=== PATIENT | female | born 1945 | race Caucasian/White ===

== ENCOUNTER 2016-05-29 23:36 | Inpatient (IN) | payer MEDICARE ==
[~2016-05-29] VITALS: Ht 165.1 cm; Wt 57.8 kg
[2016-05-29 23:40] VITALS: BP 194/70; PULSE 83; RESP 17; O2SAT 100
--- NOTE | 2016-05-29 23:46 | ED.REPORT ---
HPI-Chest Pain 40 and Over Date of Service May 29, 2016 ED Provider: Yesika Gilman MD This is a 70 year old female with a history of HTN and hyperlipidemia presenting to the ED complaining of substernal chest pain that began 2 days ago. Described as burning and squeezing at times with positional character, exacerbated by lying on left side, relieved by lying on back. Denies radiation of pain. The pain seemed to worsen tonight and is associated with some SOB. Denies cough, fever, chills, abdominal pain, diaphoresis, or LE swelling. Pt had 650 mg ASA 3 hours ago. Nursing Notes Stated Complaint: CHEST PAIN Chief Complaint: Chest Pain Nursing Notes Reviewed: Yes Allergies: Coded Allergies: erythromycin base (Verified Adverse Reaction, Unknown, Abdominal Pain, ) General Time Seen by MD: 23:44 Chief Complaint Chest pain Hx Obtained From: Patient Arrived By: Walk-in Sudden in Onset?: Yes Onset Occurred: 2 days ago Symptom Duration: Since onset Severity: Current: Mild Pertinent Negative: Pt denies other symptoms Recent Healthcare: No recent doctor visit, No recent hospitalization Similar Sx Previous: No Past Medical History Past Medical History Reports: Hyperlipidemia, Hypertension Past Surgical History Denies Ambulatory Status Independent Review of Systems Constitutional: Denies: Chills, Fever Respiratory: Reports: Shortness of breath, Denies: Non-productive cough Cardiovascular: Reports: Chest pain, Denies: Syncope GI: Denies: Abdominal pain, Constipation, Diarrhea, Nausea, Vomiting Neurologic: Denies: Headache Complete sys rev & neg: except as marked. Physical Exam Initial Vital Signs Vital Signs (First) Date Time Temp Pulse Resp B/P Pulse Ox O2 Delivery O2 Flow Rate FiO2 05/29/16 23:40 36.7 83 17 194/70 100 Room Air Initial VS: Reviewed Head / Eyes: Atraumatic, Normocephalic, PERRL ENT: Mucous membranes moist, Conjunctiva normal, No scleral icterus Neck: Supple, Non-tender, Full range of motion Extremities: Vascular intact, Neuro intact, No swelling, No tenderness Skin: Warm, Dry, No cyanosis Neurologic: Alert, Oriented, Nonfocal Psychiatric: Mood/affect normal, Behavior normal, Normal thought content General/Constitutional: Awake, Alert Respiratory / Chest: Breath sounds NL, Breath sounds = bilat, No respiratory distress, No rales, No rhonchi, No wheezing, No stridor, No chest tenderness Cardiovascular: Heart rate NL, Regular rhythm, Heart sounds NL, No murmurs, Peripheral circulation NL, Pulses = bilaterally, No gross BP differential Abdomen: Soft, Non-tender, McBurney's non-tender, No guarding, No rebound, BS normoactive, No distention, No hernia, No palpable mass Interpretation & Diagnostics Lab Results Interpretation Result Diagram: 05/30/16 0002 05/30/16 0002 Test 05/30/16 00:02 White Blood Count 5.4th/mm3 (3.8-10.1) Red Blood Count 4.27mil/mm3 (3.90-5.20) Hemoglobin 12.5g/dL (12.0-15.6) Hematocrit 38.0% (35.0-46.0) Mean Corpuscular Volume 89.0fL (81-100) Mean Corpuscular Hemoglobin 29.3pg (27.0-35.0) Mean Corpuscular Hemoglobin Concent 32.9% (32.0-37.0) Red Cell Distribution Width 13.1% (12.3-15.4) Platelet Count 286bil/L (150-400) Neutrophils (%) (Auto) 49.9% (40-74) Lymphocytes (%) (Auto) 35.7% (14-46) Monocytes (%) (Auto) 11.8% (4-12) Eosinophils (%) (Auto) 1.7% (0-5) Basophils (%) (Auto) 0.7% (0-3) Sodium Level 137mEq/L (134-144) Potassium Level 4.3mEq/L (3.5-5.2) Chloride Level 100mEq/L (97-108) Carbon Dioxide Level 24mmol/L (18-29) Blood Urea Nitrogen 13mg/dL (8-27) Creatinine 0.74mg/dL (0.57-1.00) Estimat Glomerular Filtration Rate 111mL/min (>59) Glucose Level 94mg/dL (60-99) Calcium Level 9.5mg/dL (8.5-10.1) Magnesium Level 2.5mg/dL (1.6-2.6) Total Bilirubin 0.2mg/dL (0.0-1.2) Aspartate Amino Transf (AST/SGOT) 19U/L (0-50) Alanine Aminotransferase (ALT/SGPT) 12U/L (0-32) Alkaline Phosphatase 111U/L (25-165) Troponin T 0.010ug/L (0.0-0.011) Pro-B-Type Natriuretic Peptide 179.1pg/mL (0-301) Total Protein 8.4g/dL (6.4-8.4) Albumin 4.5g/dL (3.4-5.0) Hold Urban Top Tube Received (Received) ECG Interpretation ECG Interpretation: NSR at a rate of [address] elevation t-wave inversion in AVR and v1 RBBB Time: 23:51 Interpreted by: ED physician X-Ray Chest Interpretation Interpretation / Wet Read by: Wet read ED physician NL X-Ray Chest Findings: No acute disease Re-Eval/Medical Decision Med Decision/Clinical Course 70-year-old female with past medical history of hypertension and hyperlipidemia here with chest pain associated with shortness of breath and diaphoresis. Differential diagnosis includes but is not limited to ACS versus pleural effusion versus pneumonia versus anxiety. Patient's chest x-ray is normal. Initial EKG and troponin are unremarkable. Given her multiple risk factors, I have admitted her to the hospital for formal ACS rule out. She is aware and amenable to discharge. I did not give her aspirin in the emergency department because she took aspirin prior to arrival. Time of Eval: 01:23 Re-Evaluation/Progress Note: Discussed need for admission, all questions addressed. Consultation : Referral / Consult Name: Misti Holt DO Consulted With: Hospitalist Call Returned at: 01:22 Patent Legal Assistant: Accepts admit Counseled Regarding: Diagnosis, Lab results, Need for follow-up, Need for admission Discharge & Departure Primary Impression: Chest pain Chest pain type: unspecified Qualified Code: R07.9 - Chest pain, unspecified Disposition: ADMITTED TO HOSPITAL Discharge Condition All VS Reviewed: Yes Condition: Stable Scribe Attestation Portions of this note were transcribed by Jameel Larson. IDr. Gilman personally performed the history, physical exam and medical decision-making; I reviewed and confirmed the accuracy of the information in the transcribed note. Signed by: estiven Mckeon. 05/29/2016, 02:00. Yesika Gilman MD May 29, 2016 23:46 JAMEEL LARSON May 29, 2016 23:48
[2016-05-30] VITALS (11 sets, daily range): BP systolic 103–155; BP diastolic 56–84; PULSE 66–81; RESP 18–20; O2SAT 96–100
[2016-05-30] MEDS ORDERED: cloNIDine 0.1 mg Tablet PO ONE
[2016-05-30 00:18] LABS: BASOPHILS % (AUTO) 0.7 % (0-3); EOSINOPHILS % (AUTO) 1.7 % (0-5); MONOCYTES % (AUTO) 11.8 % (4-12); Mean Corpuscular Hemoglobin 29.3 pg (27.0-35.0); NEUTROPHILS % (AUTO) 49.9 % (40-74); Platelet Count 286 bil/L (150-400)
[2016-05-30 01:08] LABS: Magnesium 2.5 mg/dL (1.6-2.6); TROPONIN T 0.01 ug/L (0.0-0.011)
[2016-05-30] MEDS ORDERED: Senna-Docusate 8.6-50 mg Tablet PO PRN (01:55)
[2016-05-30] MEDS ORDERED: Alum-Mag Hydrox-Simeth 30 mL Suspension PO PRN (01:55)
[2016-05-30] MEDS ORDERED: Ondansetron 2 mg/mL 2 mL Inj IVPUSH PRN (01:55)
[2016-05-30] MEDS ORDERED: Polyethylene Glycol (PEG) 17 Gm Powder PO PRN (01:55)
[2016-05-30 02:30] LABS: APPEARANCE,URINE CLEAR (CLEAR,HAZY); COLOR,URINE STRAW (YELLOW); OCCULT BLOOD,URINE NEGATIVE (NEGATIVE); PH,URINE 7.5 (5.0-8.0); UROBILINOGEN,URINE NORMAL (NORMAL)
[2016-05-30] MEDS ORDERED: cloNIDine 0.1 mg Tablet PO PRN (02:35)
--- NOTE | 2016-05-30 02:36 | PCM.HPMED ---
Subjective Date of Service May 30, 2016 Primary Provider: Admitting Physician: Misti Holt DO Primary Care Physician: Yunior Menchaca DO Attending Physician: Misti Holt DO Admit Status: From the Emergency Department Chief Complaint: Chest pain History of Present Illness: Patient is a 70 year old female with a history of hyperlipidemia and hypertension. She presented to [facility] on 05/29/16 with chest pain. She first noted the chest pain two nights ago. It occurred while she was in bed and she described that as a burning pain with pressure. She attributed this to acid reflux at that time. Yesterday she went [place] walk [place] the [place] and reported no chest pain, shortness of breath or other discomfort. Last night, the pain returned while she was in bed. She states that she was unable to lay comfortably on either side because of the pain. She did not have any issues during the day again today, but this evening she had her symptoms again and this time felt they were worse. At first she tried taking two aspirin and sitting upright. This did not help and she then became short of breath with mild nausea. The pain was radiating into her left shoulder and neck. She had pleurisy about 7 years ago and reports that this pain is different; not worse with deep inspiration. She denies any edema. She did have a cold about two weeks ago not requiring any medical treatment - this has resolved. In the ED the patient was afebrile, heart rate 83, respiratory rate 17, blood pressure 194/70, and O2 saturation 100% on room air. Labs were unremarkable. Patient admitted for further observation and evaluation of her chest pain. Review of Systems: A comprehensive review of systems was conducted with the patient and found to be negative except as above in the history of present illness. Allergies Coded Allergies: erythromycin base (Verified Adverse Reaction, Unknown, Abdominal Pain, ) Home Medications Patient reports taking no prescribed medication on a daily basis. She does take clonidine 0.1 mg as needed for her hypertension. Supplements: Red rice yeast Cranberry pills Magnesium Vitamin B12 Vitamin C PMH Hyperlipidemia Hypertension Surgical History None Family History Mother - stroke, age 77 Father - stroke, age 80 Sister - CAD with angioplasty Sister - rheumatic heart disease Brother - CAD with CABG Social History Hx Alcohol Use: No Hx Substance Use: No Hx Tobacco Use: No Smoking Status: Never Smoker Living Arrangement: Alone ( with late stage dementia in a care facility ) Exam Vital Signs Vital Sign - Last Date Time Temp Pulse Resp B/P Pulse Ox O2 Delivery O2 Flow Rate FiO2 05/30/16 00:34 81 20 155/69 100 Room Air 05/29/16 23:40 36.7 Exam Alert and oriented x3, no acute distress Head atraumatic, normocephalic PERRLA, EOMI, sclera anicteric Mucus membranes moist, no oral thrush observed No cervical lymphadenopathy, neck supple, nontender No JVD noted Cardiac tones regular rate and rhythm with no murmur appreciated Lungs clear to auscultation bilaterally with adequate respiratory effort No abdominal tenderness, non-distended, normoactive bowel tones, soft Soriano absent Radial pulses normal and equivalent bilaterally, dorsalis pedis pulses normal and equivalent bilaterally No cyanosis, clubbing or edema No ulcerations/open wounds Cranial nerves appear to be fully intact, normal speech, patient can move upper and lower limbs grossly Lab and Diagnostics Result Diagram: 05/30/16 0002 05/30/16 0002 12-lead ECG Rate 76 QTc 460 No significant ischemic changes seen on EKG; about [address] depression noted II, III, aVF Assessment & Plan Patient is a 70 year old female with a history of hyperlipidemia and hypertension. She presented to [facility] on 05/29/16 with chest pain. Admitted for observation and evaluation of her chest pain. 1. Possible coronary artery disease. - History of hyperlipidemia and positive family history of CAD. - Trending troponin. - CK-MB panel ordered and pending. - Lipid panel ordered and pending. - Nitro SL and morphine available PRN for chest pain. - Start aspirin 81 mg daily. - Echocardiogram ordered for tomorrow AM. - Repeat ECG tomorrow AM. - Exercise stress test ordered with Lexiscan back-up if needed. Patient to be NPO 4 hours prior to exam. 2. Hypertension, acute on chronic. - Clonidine 0.1 mg given x 1 with good effect. - Patient managing with diet and exercise in outpatient setting. - Continue to monitor. - Clonidine 0.1 mg available PRN at this time. - If patient persistently hypertensive, consider starting SELENE or thiazide prior to discharge. 3. Hyperlipidemia, chronic. - Patient reports taking red rice yeast, no statin. - Also manages with diet, exercise. - Lipid panel ordered and pending. - Consider starting at least moderate intensity statin. [place] risk score is about 10%. - Antiemetic available PRN. - Antacid available PRN. - Bowel regimen available PRN. - Tylenol available PRN mild pain, fever. Patient admitted under observation status with expected length of stay less than 2 midnights for severity of present symptoms, complexities of treatment plan and risk for adverse events. PCP: Yunior Menchaca MD VTE Prophylaxis: SCDs Resuscitation Status: Limited Interventions (Patient ok with cardioversion/ defibrillation and intubation; does not want chest compressions) Attending Statement The patient was seen and examined together with house staff on 05/30/2016 and I agree with the history, exam and plan as outlined in the note above. copies to: Yunior Menchaca Jennifer E DO May 30, 2016 02:36 Misti Holt DO May 30, 2016 04:28
[2016-05-30 02:44] LABS: Creatine Kinase 106 U/L (21-215)
--- NOTE | 2016-05-30 03:08 | NUR ---
ADMIT: 0230 Pt. arrived to [facility] from the ED via stretcher. Awake, alert and talking, was able to ambulate from stretcher to her bed without difficulty. Steady on her feet. VS taken upon arrival, vss. Denies chest pain or SOB. Pt. states she lives independently at home, is in a care facility on his last stages of Alzheimer's DZ and this is very stressful for her. States her chest pain started 3 days ago and became worse, she ended up coming to the ED. She is a Vegan, does not have any medical issues, only mild hypertension she takes clonidine about 3 times prn per year. She does have a hx of pneumonia and a hysterectomy can't remember how long ago. Placed on remote telemetry, and SCDs on arrival. She is A & O, with all vss.
[2016-05-30] MEDS ORDERED: clonidine PO (06:03)
[2016-05-30] MEDS ORDERED: Sodium Chloride LOK Flush 10 mL Syringe IVFLUSH SCH (08:30)
--- NOTE | 2016-05-30 08:50 | NUR ---
Off Unit Pt is off unit to NM for Stress test.
--- NOTE | 2016-05-30 09:11 | DRSVH ---
PROCEDURE: X-RAY CHEST, TWO VIEWS ([id number]) INDICATIONS: chest pain TECHNIQUE: 2 views of the chest were acquired. COMPARISON: None. FINDINGS: Surgical changes and devices: None. Lungs and pleura: No pleural effusions or pneumothorax. Lungs are clear. Mediastinum: Mediastinal contours are normal. Heart size is normal. Bones and chest wall: No suspicious bony abnormalities. Soft tissues appear unremarkable. IMPRESSION: No acute cardiopulmonary disease. Dictated by: Jair ELI Interpreted: Greer Martinez MD on 05/30/2016 at 9:09 Approved by: Jair ELI Interpreted: Greer Martinez MD on 05/30/2016 at 9:09
--- NOTE | 2016-05-30 10:44 | NUR ---
Pt back to unit 1035.
[2016-05-30] MEDS ORDERED: CLON0.1T PO (11:27)
--- NOTE | 2016-05-30 11:55 | DRSVH ---
PROCEDURE: 1 DAY TREADMILL STRESS TEST Rest and exercise myocardial perfusion SPECT with gated imaging and ejection fraction RADIOPHARMACEUTICAL: 8.8 mCi Tc-99m tetrafosmin IV at rest and 25.1 mCi Tc-99m tetrafosmin IV at peak exercise. [id number] was performed. INDICATIONS: 70-year-old woman with chest pain. The patient has hypertension, hyperlipidemia and fam mahesh history of coronary artery disease. TECHNIQUE: Radiopharmaceutical was injected at peak stress test, and also at rest. SPECT images wer e obtained. SPECT myocardial perfusion images were displayed in short axis, horizontal long axis, an d vertical long axis views. Gated images were reviewed using Hurray!QUANT software. COMPARISON: None. CARDIAC STRESS: A standard [place] treadmill exercise tolerance test was performed by the patient under the supervision of an attending staff. The patient exercised for 6 minutes and 0 seconds; functional aerobic impair ment (MEJIA) is 0 %. Hemodynamic data: There is normal blood pressure and heart rate response to exercise stress. Patien t achieved 86% of maximum predicted heart rate at peak exercise. Symptoms: Patient experienced chest pain (2-3/10) during exercise. EKG: There is up to [address] depression inII, III and V5-6; occasional PVCs. FINDINGS: Raw data: There is good myocardial labeling by radiotracer. No significant motion artifacts. Left ventricle function: Gated images demonstrate normal left ventricle wall thickening. No segment al wall motion abnormality. No transient ischemic dilation. The left ventricle resting end-diastoli c volume is normal. Left ventricle stress ejection fraction is greater than 70%; normal values are a kirsten 45%. Myocardial perfusion: There is a moderate sized, moderately severe, reversible perfusion defect in t he anterior apex and anterior septum, consistent with myocardial ischemia. IMPRESSION: 1. Abnormal myocardial perfusion images. There is a moderate sized, moderately severe, reversible per fusion defect in the anterior apex and anterior septum, consistent with myocardial ischemia 2. Normal left ventricular volume and systolic function. 3. Fair exercise capacity. The patient experienced mild chest pain during exercise stress. There were diagnostic EKG changes for ischemia. The result was discussed with Dr. Zurita (red team) prior to dictation. PQRS ATTESTATIONS: Measure 322 - Is this imaging test primarily performed on a low-risk surgery patient for preoperative evaluation within 30 days preceding their low-risk non-cardiac surgery? Low-risk surgery is defined as cardiac or myocardial infarction less than 1%, including (but not limited to) endoscopic pr ocedures, superficial procedures, cataract surgery, and excisional breast surgery: Answer: No Measure 323 - Is this imaging test performed primarily for the monitoring of an asymptomatic patient who had percutaneous coronary intervention on the visit date or within 2 years of the visit date? An swer: No Measure 324 - Is this imaging test performed primarily for the initial detection and risk assessment on an asymptomatic, low coronary heart disease patient? Low CHD risk definition = clinicians should consider the maximum number of available patient factors used to estimate risk based on [place] (A TP III criteria), typically age, gender, diabetes, smoking status, and use of blood pressure medicati on, and integrate age appropriate estimates for missing elements, such as LDL or standard blood press ure. Answer: No Dictated by: Greer Martinez M.D. on 05/30/2016 at 11:42 Approved by: Greer Martinez M.D. on 05/30/2016 at 11:53
[2016-05-30] MEDS: Sodium Chloride LOK Flush 10 mL Syringe IVFLUSH SCH (16:08)
--- NOTE | 2016-05-30 16:53 | NUR ---
Activity/Pain Pt has had no c/o chest pain today. She has been A&Ox3, using call light appropriately and making needs known. The beginning of shift she c/o some intermittent pain in the base of the left side of her neck. Pt has had this specific pain for apx 2 weeks and her PCP suggested getting a CT if it persisted. is aware. Pt has not had any more c/o pain since this morning before her stress test. Will continue to monitor.
--- NOTE | 2016-05-30 17:11 | NUR ---
Case Management: CAROLYNN explained to patient, she refused to sign without reading it instructing me to come back in a few minutes at 1600. I have been back to room at 1625, she instructed me to come back later. I also provided "How Medicare Covers Self-Administered Drugs given in Hospital Outpatient Settings." Will check back later. Mallory Johnson RN Addendum: 05/30/16 at 1800 by MALLORY JOHNSON CM CAROLYNN signed by patient at 1745, all questions answered. Signed copy placed in chart, copy given to patient. Mallory Johnson RN
--- NOTE | 2016-05-30 17:32 | PCM.PNMED ---
Subjective Date of Service May 30, 2016 Subjective Patient was examined at bedside today. Patient denies any shortness of breath, nausea, vomiting, diarrhea. Patient reports chest pain that resolves with rest and medications. Patient states that she currently does not have any chest pain at this moment. Exam Vital Signs Vital Sign - Last Date Time Temp Pulse Resp B/P Pulse Ox O2 Delivery O2 Flow Rate FiO2 05/30/16 15:27 36.7 69 18 103/58 96 Room Air Intake and Output 05/29/16 05/29/16 05/30/16 Cumulative From/Thru 15:00 23:00 07:00 05/29/16 23:40 - 05/30/16 06:01 Intake Total 300 ml 300 ml Output Total 0 ml 0 ml Balance 300 ml 300 ml Intake Oral 300 ml 300 ml Output Urine Total 0 ml 0 ml Exam Physical Exam: GEN: Patient was awake, alert, responding appropriately to questions HEENT: PERRLA, EOMI, Neck soft supple, trachea midline, nomocephalic/atraumatic CV: +S1/S2, RRR, no murmurs auscultated Respiratory: CTAB, no wheezes, rales, rhonchi GI: +bowel sounds x4, soft, compressible, non TTP EXT: no c/c/e Neuro: CN II-XII grossly intact Psych: mood and affect were appropriate IVs and Medications Medications Reviewed: Medications were reviewed in detail Medications Current Medications Al Hydrox/Mg Hydrox/Simethicone 30 ml Q6 PRN PO; Start 05/30/16 at 01:55 Ondansetron HCl Dose range: 4 mg to 8 mg Q4H PRN IVPUSH; Start 05/30/16 at 01: 55 Acetaminophen 975 mg Q6H PRN PO; Start 05/30/16 at 01:55 Sodium Chloride 10 ml MILY IVFLUSH; Start 05/30/16 at 08:30; Stop 05/30/16 at 14: 49; Status DC Aspirin 81 mg DAILY PO Last administered on 05/30/16t 10:55; Admin Dose 81 MG; Start 05/30/16 at 08:30 Senna 1 tablet BID PRN PO; Start 05/30/16 at 01:55 Polyethylene Glycol 17 gm DAILY PRN PO; Start 05/30/16 at 01:55 Nitroglycerin 0.4 mg Q5MIN PRN SL; Start 05/30/16 at 01:55 Morphine Sulfate 1-5 mg prn pain not relie... Q5M PRN IVPUSH; Start 05/30/16 at 01:55 Clonidine 0.1 mg BID PRN PO; Start 05/30/16 at 02:35 Lorazepam 1 mg ONCE PRN IVPUSH; Start 05/31/16 at 06:00; Stop 06/01/16 at 06:01 Nitroglycerin 0.4 mg PRN PRN SL; Start 05/31/16 at 06:00; Stop 05/31/16 at 06: 00; Status DC Sodium Chloride 10 ml MILY IVFLUSH Last administered on 05/30/16t 16:08; Admin Dose 10 ML; Start 05/30/16 at 16:30 Lab and Diagnostics Result Diagram: 05/30/16 0002 05/30/16 0002 12-lead ECG Rate 76 QTc 460 No significant ischemic changes seen on EKG; about [address] depression noted II, III, aVF Additional Diagnostics PROCEDURE: 1 DAY TREADMILL STRESS TEST Rest and exercise myocardial perfusion SPECT with gated imaging and ejection fraction RADIOPHARMACEUTICAL: 8.8 mCi Tc-99m tetrafosmin IV at rest and 25.1 mCi Tc-99m tetrafosmin IV at peak exercise. [id number] was performed. INDICATIONS: 70-year-old woman with chest pain. The patient has hypertension, hyperlipidemia and family history of coronary artery disease. TECHNIQUE: Radiopharmaceutical was injected at peak stress test, and also at rest. SPECT images were obtained. SPECT myocardial perfusion images were displayed in short axis, horizontal long axis, and vertical long axis views. Gated images were reviewed using AutoQUANT software. COMPARISON: None. CARDIAC STRESS: A standard [place] treadmill exercise tolerance test was performed by the patient under the supervision of an attending staff. The patient exercised for 6 minutes and 0 seconds; functional aerobic impairment (MEJIA) is 0 %. Hemodynamic data: There is normal blood pressure and heart rate response to exercise stress. Patient achieved 86% of maximum predicted heart rate at peak exercise. Symptoms: Patient experienced chest pain (2-3/10) during exercise. EKG: There is up to [address] depression inII, III and V5-6; occasional PVCs. FINDINGS: Raw data: There is good myocardial labeling by radiotracer. No significant motion artifacts. Left ventricle function: Gated images demonstrate normal left ventricle wall thickening. No segmental wall motion abnormality. No transient ischemic dilation. The left ventricle resting end-diastolic volume is normal. Left ventricle stress ejection fraction is greater than 70%; normal values are above 45%. Myocardial perfusion: There is a moderate sized, moderately severe, reversible perfusion defect in the anterior apex and anterior septum, consistent with myocardial ischemia. IMPRESSION: 1. Abnormal myocardial perfusion images. There is a moderate sized, moderately severe, reversible perfusion defect in the anterior apex and anterior septum, consistent with myocardial ischemia 2. Normal left ventricular volume and systolic function. 3. Fair exercise capacity. The patient experienced mild chest pain during exercise stress. There were diagnostic EKG changes for ischemia. The result was discussed with Dr. Zurita (red team) prior to dictation. [facility] ATTESTATIONS: Measure 322 - Is this imaging test primarily performed on a low-risk surgery patient for preoperative evaluation within 30 days preceding their low-risk non- cardiac surgery? Low-risk surgery is defined as cardiac or myocardial infarction less than 1%, including (but not limited to) endoscopic procedures, superficial procedures, cataract surgery, and excisional breast surgery: Answer : No Measure 323 - Is this imaging test performed primarily for the monitoring of an asymptomatic patient who had percutaneous coronary intervention on the visit date or within 2 years of the visit date? Answer: No Measure 324 - Is this imaging test performed primarily for the initial detection and risk assessment on an asymptomatic, low coronary heart disease patient? Low CHD risk definition = clinicians should consider the maximum number of available patient factors used to estimate risk based on [place] ( ATP III criteria), typically age, gender, diabetes, smoking status, and use of blood pressure medication, and integrate age appropriate estimates for missing elements, such as LDL or standard blood pressure. Answer: No Dictated by: Greer Martinez M.D. on 05/30/2016 at 11:42 Approved by: Greer Martinez M.D. on 05/30/2016 at 11:53 Assessment & Plan Patient is a 70 year old female with a history of hyperlipidemia and hypertension. She presented to [facility] on 05/29/16 with chest pain. Admitted for observation and evaluation of her chest pain. Possible coronary artery disease. -- History of hyperlipidemia and positive family history of CAD. -- Trending troponin negative 3 -- CK-MB panel ordered within normal limits -- Lipid panel ordered shows elevated cholesterol at 244 and LDL 149 -- Nitro SL and morphine available PRN for chest pain. -- Continue aspirin 81 mg daily. -- Echocardiogram results pending -- Exercise stress test with abnormal -- Cardiology consulted (Dr. Trevino) Hypertension, acute on chronic. -- Currently stable blood pressure is 103/58 -- Start carvedilol 3.125 mg twice a day -- We will continue to monitor Hyperlipidemia, chronic. -- Lipid panel elevated cholesterol 244 and LDL 149 -- [place] risk score is about 10%. -- Start Atorvastatin 10 mg daily at bedtime - Antiemetic available PRN. - Antacid available PRN. - Bowel regimen available PRN. - Tylenol available PRN mild pain, fever. Disposition: Patient has had an abnormal stress test which she was an ischemic event taking place. Cardiology has been consulted patient will be taken for a cardiac cath tomorrow morning. We will continue to monitor and medically manage patient. Patient will be nothing by mouth at midnight. PCP: Yunior Menchaca MD VTE Prophylaxis: SCDs VTE Mechanical Devices: Intermittant Pneumatic CD Resuscitation Status: Limited Interventions (Patient ok with cardioversion/ defibrillation and intubation; does not want chest compressions) China Zurita DO May 30, 2016 17:32
--- NOTE | 2016-05-30 18:10 | DRSVH ---
[facility] [address] [place] [address] Echocardiogram Report Name: MARY LAMAS MStudy Date: 05/30/2016 Height: 65 in Hospital Exam Location: [facility] Weight: 127 lb Gender: Female BSA: 1.6 m2 : 1945 Age: 70 yrs BP: 114/71 mmHg Reason For Study: Chest pain Ordering Physician: HOSPITALIST DONNAerformed By: Delilah Vogel Referring Physician: Dr. Deric Menchaca Interpretation Summary The left ventricular cavity is small. The ejection fraction is estimated to be 60-65%. There are no focal wall motion abnormalities. The right ventricle is normal in size and function. The right ventricular systolic pressure is estimated at 30 mmHg assuming a right atrial pressure of 3 mm Hg. Both atria are normal in size. There is no significant valvular heart disease. The aortic root is normal size. Procedure: A two-dimensional transthoracic echocardiogram with color flow and Doppler was performed. The study quality was technically adequate. There is no prior echocardiogram noted for this patient. The patient was in normal sinus rhythm during the exam. Left Ventricle: The left ventricular cavity is small. There is normal left ventricular wall thickness. The ejection fraction is estimated to be 60-65%. There are no focal wall motion abnormalities. Assessment of diastolic parameters indicates normal left ventricular diastolic function and normal filling pressures. Right Ventricle: The right ventricle is normal in size and function. Atria: Both atria are normal in size. There is no Doppler evidence for an interatrial shunt. Mitral Valve: The mitral valve is normal in structure and function. There is trace mitral regurgitation. Aortic Valve: The aortic valve is normal in structure and function. No aortic regurgitation is present. Tricuspid Valve: The tricuspid valve is normal. There is trace tricuspid regurgitation. The right ventricular systolic pressure is estimated at 30 mmHg assuming a right atrial pressure of 3 mm Hg. Pulmonic Valve: The pulmonic valve is not well visualized. There is no significant valvular heart disease. Great Vessels: The aortic root is normal size. The ascending aorta is normal in size. The aortic arch is normal in size. The IVC is of normal diameter and collapses greater than 50% with a sniff. This suggests a low right atrial pressure of 3 mm Hg. Pericardium/ Pleura There is no pericardial effusion. MMode/2D Measurements & Calculations LVIDd: 3.5 cm RA long axis LVOT diam: 1.7 cm LVIDs: 2.2 cm LA A2 area: 12.5 cm Ao root diam FS: 38.1 % LA A4 area: 13.7 cm RA area EPSS: 0.19 cm LA length (vol) asc Aorta Diam IVSd: 0.87 cm : 14.3 cm LVPWd: 0.83 cm LA vol: 32.5 ml RA vol Ao Arch Diam (Prox LA vol index : 40.7 ml Trans): 2.2 cm RA : 24.9 mm2 IVC diam: 1.9 cm LV armenta. diameter/BSA LV sys. diameter/BSA RVD1 (basal) (cm/m^2): 2.2 (cm/m^2): 1.3 Doppler Measurements & Calculations Ao V2 max MV E max patricio MV E/A: 0.98 TR max patricio : 117.3 cm/sec : 92.8 cm/sec Med Peak E' Patricio : 260.9 cm/sec Ao max PG MV A max patricio TR max PG : 5.5 mmHg : 94.5 cm/sec E/E' med: 11.8 : 27.2 mmHg Ao mean PG MV P1/2t: 74.7 msec Pulm A Revs Dur PA V2 max : 99.1 cm/sec LVOT Max Patricio MV A dur: 0.10 sec PA mean PG : 110.2 cm/sec PA Accel Time DUKE(I,D): 2.1 cm : 0.14 sec sev ratio MV dec time MV P1/2t max patricio Ao V2 mean LV V1 max PG : 0.25 sec : 77.7 cm/sec MVA(P1/2t): 2.9 cm2 Ao V2 VTI: 23.1 cm LV V1 VTI DUKE(V,D): 2.1 cm2 : 21.9 cm PA V2 mean DUKE indexed to BSA Pulm A Revs Dur - MV : 68.2 cm/sec (cm^2/m^2): 1.3 A Dur: 0.00 msec Reading Physician:VILLA
--- NOTE | 2016-05-30 21:43 | PCM.CHPCAR ---
Consult Subjective Date of service May 30, 2016 Date of admit May 30, 2016 at 01:28 Provider Requesting Consult Requesting Provider: China Zurita DO Primary Care Physician Primary Care Provider: Yunior Menchaca DO Chief Complaint Chest pain History of Present Illness This is a 70 y/o female with no prior CAD. She comes in with complaints of chest pain that has atypical features for angina. She is very active. She eats a vegan diet for many years. She exercises three times a week at [facility] and she has never had any CP during exercises. But over the past 1-2 weeks she has developed some heartburn sensation on exertion but her main complaints have obscured at nighttime. When she walks she is not limited by her chest discomfort but it does bother her. However at nighttime she has had severe chest discomfort that she describes a sharp but radiates to her neck and left arm. Her daughter is a RN in [place] and advise her to the ER [facility]. She was admitted early this morning and proceeded with a stress test (myocardial perfusion study). She proceed with an exercise treadmill study and she developed some CP that was 2-3/10 and abated with rest. She also had ST depressions during recovery stage as well. Her images have been reviewed and agree with interpretation. There is a moderate size perfusion abnormality consistent with ischemia along the mid/distal LAD territory. Based on these abnormalities, I was asked to see her today to see if coronary angiogram will be appropriate. Review of Systems Review of Systems A comprehensive review of systems was conducted with the patient and found to be negative except as above in the history of present illness. PMH Past Medical History Hyperlipidemia Hypertension Scheduled PRN Clonidine (Clonidine) 0.1 Mg Tablet 0.1 MG PO PRN For HYPERtension (Reported) Discontinued Medications ([clonidine]) PO (Reported) Current Inpatient Medications Current Medications Al Hydrox/Mg Hydrox/Simethicone 30 ml Q6 PRN PO; Start 05/30/16 at 01:55 Ondansetron HCl Dose range: 4 mg to 8 mg Q4H PRN IVPUSH; Start 05/30/16 at 01: 55 Acetaminophen 975 mg Q6H PRN PO; Start 05/30/16 at 01:55 Sodium Chloride 10 ml MILY IVFLUSH; Start 05/30/16 at 08:30; Stop 05/30/16 at 14: 49; Status DC Aspirin 81 mg DAILY PO Last administered on 05/30/16t 10:55; Admin Dose 81 MG; Start 05/30/16 at 08:30 Senna 1 tablet BID PRN PO; Start 05/30/16 at 01:55 Polyethylene Glycol 17 gm DAILY PRN PO; Start 05/30/16 at 01:55 Nitroglycerin 0.4 mg Q5MIN PRN SL; Start 05/30/16 at 01:55 Morphine Sulfate 1-5 mg prn pain not relie... Q5M PRN IVPUSH; Start 05/30/16 at 01:55 Clonidine 0.1 mg BID PRN PO; Start 05/30/16 at 02:35; Stop 05/30/16 at 17:27; Status DC Lorazepam 1 mg ONCE PRN IVPUSH; Start 05/31/16 at 06:00; Stop 06/01/16 at 06:01 Nitroglycerin 0.4 mg PRN PRN SL; Start 05/31/16 at 06:00; Stop 05/31/16 at 06: 00; Status DC Sodium Chloride 10 ml MILY IVFLUSH Last administered on 05/30/16t 16:08; Admin Dose 10 ML; Start 05/30/16 at 16:30 Metoprolol Tartrate 25 mg BID PO; Start 05/30/16 at 20:30; Stop 05/30/16 at 20: 30; Status DC Carvedilol 3.125 mg BIDWM PO; Start 05/30/16 at 17:30 Atorvastatin Calcium 10 mg HS PO; Start 05/30/16 at 21:00 Allergies: Coded Allergies: erythromycin base (Verified Adverse Reaction, Unknown, Abdominal Pain, ) Family History Family History Mother - stroke, age 77 Father - stroke, age 80 Sister - CAD with angioplasty Sister - rheumatic heart disease Brother - CAD with CABG Social History Hx Alcohol Use: NoHx Substance Use: NoHx Tobacco Use: No Smoking Status: Never Smoker Living Arrangement: Alone ( with late stage dementia in a care facility ) Exam Vital Signs Vital Sign - Last Date Time Temp Pulse Resp B/P Pulse Ox O2 Delivery O2 Flow Rate FiO2 05/30/16 15:27 36.7 69 18 103/58 96 Room Air Intake and Output 05/29/16 05/29/16 05/30/16 Cumulative From/Thru 15:00 23:00 07:00 05/29/16 23:40 - 05/30/16 06:01 Intake Total 300 ml 300 ml Output Total 0 ml 0 ml Balance 300 ml 300 ml Intake Oral 300 ml 300 ml Output Urine Total 0 ml 0 ml General: Pleasant Cooperative Skin: Warm & dry to touch Head: Normocephalic Eye: EOMS intact No arcus or xanthelasma Neck: No JVD Ears, Nose & Throat: Ears no gross abnormalities Nose no gross abnormalities Chest: Clear auscultation w/o rales/wheeze Cardiac: Normal non-displaced apical impulse Regular rhythm with normal S1-S2 No murmurs, gallops or rubs Pulses: Pulses full/equal all extremities Abdomen: Soft, non-distended, non-tender Lymphatic: No palpable lymphadenopathy Extremities: Warm w/o deformities,erythema noted Neurological: Alert & oriented Psychological: Affect & interaction appropriate Lab and Diagnostics Labs CBC Test 05/30/16 00:02 White Blood Count 5.4th/mm3 (3.8-10.1) Red Blood Count 4.27mil/mm3 (3.90-5.20) Hemoglobin 12.5g/dL (12.0-15.6) Hematocrit 38.0% (35.0-46.0) Mean Corpuscular Volume 89.0fL (81-100) Mean Corpuscular Hemoglobin 29.3pg (27.0-35.0) Mean Corpuscular Hemoglobin Concent 32.9% (32.0-37.0) Red Cell Distribution Width 13.1% (12.3-15.4) Platelet Count 286bil/L (150-400) Neutrophils (%) (Auto) 49.9% (40-74) Lymphocytes (%) (Auto) 35.7% (14-46) Monocytes (%) (Auto) 11.8% (4-12) Eosinophils (%) (Auto) 1.7% (0-5) Basophils (%) (Auto) 0.7% (0-3) CMP Test 05/30/16 00:02 05/30/16 12:10 Sodium Level 137mEq/L Potassium Level 4.3mEq/L Chloride Level 100mEq/L Carbon Dioxide Level 24mmol/L Blood Urea Nitrogen 13mg/dL Creatinine 0.74mg/dL Estimat Glomerular Filtration Rate 111mL/min Glucose Level 94mg/dL Calcium Level 9.5mg/dL Magnesium Level 2.5mg/dL Total Bilirubin 0.2mg/dL Aspartate Amino Transf (AST/SGOT) 19U/L Alanine Aminotransferase (ALT/SGPT) 12U/L Alkaline Phosphatase 111U/L Total Creatine Kinase 106U/L Creatine Kinase MB 1.8ng/mL Creatine Kinase MB % % Pro-B-Type Natriuretic Peptide 179.1pg/mL Total Protein 8.4g/dL Albumin 4.5g/dL Triglycerides Level 143mg/dL Cholesterol Level 244mg/dL LDL Cholesterol, Calculated 149.400mg/dL VLDL Cholesterol 28.600mg/dL HDL Cholesterol 66mg/dL Cholesterol/HDL Ratio 3.70 Hold Urban Top Tube Received Troponin T < 0.010ug/L Result Diagram: 05/30/16 0002 05/30/16 0002 Assessment & Plan Problems: (1) Unstable angina Plan: Her history and abnormal findings on recent myocardial perfusion study warrants further diagnostic studies. I explained about the risks and benefits about the coronary angiogram +/- PCI. She is willing to proceed with coronary angiogram. She is scheduled for tomorrow am so she will need to be kept NPO past midnight. Status: Acute ICD Code: I20.0 (2) HTN (hypertension) Qualifiers: Hypertension type: essential hypertension Plan: Patient will most likely need to go on an ACEi or BB. Closely monitor her BP while starting carvedilol and if she need additional BP control then consider adding an ACEi. Status: Chronic ICD Code: I10 (3) Hyperlipidemia Qualifiers: Hyperlipidemia type: Mixed hyperlipidemia Qualified Code: E78.2 - Mixed hyperlipidemia Plan: Patient was explained about watermaster statin therapy given her supposedly CAD, she will need half-way aggressive anti-lipid therapy. I would recommend to start atorvastatin 40 mg po qhs for now. This should be titrated accordingly to the findings on her upcoming heart catheterization and to her tolerance to atorvastatin. Status: Chronic ICD Code: E78.5 Cardiology Plan: Catherization, Lipid assessment & treatment Pain Evaluation: Adequate Pain Control VTE Prophylaxis: SCDs VTE Mechanical Devices: Intermittant Pneumatic CD Resuscitation Status: Limited Interventions (Patient ok with cardioversion/ defibrillation and intubation; does not want chest compressions) Time spent 80 minutes Dima Trevino MD May 30, 2016 21:43
[2016-05-31] VITALS (15 sets, daily range): BP systolic 111–170; BP diastolic 60–74; PULSE 62–80; RESP 11–20; O2SAT 97–100
[2016-05-31] MEDS: Sodium Chloride LOK Flush 10 mL Syringe IVFLUSH SCH ×2 (02:13→08:12)
--- NOTE | 2016-05-31 05:17 | NUR ---
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
[2016-05-31] MEDS ORDERED: 0.9% Sodium Chloride 1,000 ML IV ONE (06:00)
[2016-05-31 06:25] LABS: Mean Corpuscular Hemoglobin 29.3 pg (27.0-35.0); Mean Corpuscular Volume 89.4 fL (81-100)
[2016-05-31] MEDS ORDERED: Heparin 5,000 Units/500 mL NS Premix IV ONE (09:46)
[2016-05-31] MEDS ORDERED: Heparin 1,000 Unit/mL 10 mL Inj ONE (09:46)
[2016-05-31] MEDS ORDERED: Nitroglycerin 50,000 mcg/250 mL D5W Premix IV ONE (09:46)
[2016-05-31] MEDS ORDERED: Heparin 1,000 Units/500 mL NS Premix IV ONE (09:46)
[2016-05-31] MEDS ORDERED: fentaNYL-PF 50 mCg/mL 2 mL Inj ONE (10:08)
[2016-05-31] MEDS ORDERED: 0.9% Sodium Chloride 1,000 ML ONE (10:09)
--- NOTE | 2016-05-31 10:10 | NUR ---
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 A&Ox3, WHARTON, VSS, No c/o pain, Pt with 2x IV SL - pt premedicated with IVP Benadryl, Tele aware of pt transfer, Chart with pt, Pt voided, Chart with pt, Left via bed. Await return phone call from [facility] to give report on pt as she will recover there. Addendum: 05/31/16 at 1430 by JERONIMO GRIGGS RN At 1400, notified that pt to be transferred to [facility]. All personal belongings gathered by this RN and Pt's sister, hollie walked over to [facility]. This RN attempted to call report to [facility] - Nurse Kary berkowitz. Received call from BASIL vasquez RN and informed that RN to call [facility]. Addendum: 05/31/16 at 1449 by JERONIMO GRIGGS RN REPORT GIVEN TO KARY BOOTH OF [facility] - KARY CALLED BACK FOR REPORT AT ~1430. STATED SHE WOULD CALL [facility] FOR REST OF REPORT RE: PT WEED ERADICATOR RESULT/STATUS.
[2016-05-31] MEDS ORDERED: 0.9% Sodium Chloride 250 ML IV PRN (11:06)
[2016-05-31] MEDS ORDERED: 0.9% Sodium Chloride 1,000 ML IV PRN (11:06)
[2016-05-31] MEDS ORDERED: Ondansetron 2 mg/mL 2 mL Inj IVPUSH PRN (11:10)
[2016-05-31] MEDS ORDERED: Atropine 1 mg/10 mL (Code) Syringe IVPUSH PRN (11:10)
[2016-05-31] MEDS ORDERED: HYDROcodone-APAP 5-325 mg Tablet PO PRN (11:10)
--- NOTE | 2016-05-31 11:32 | PCM.CVCATH ---
Cardiac Cath Report Date of Service May 31, 2016 Primary Indication This is a 70-year-old female who comes in with typical unstable angina and had a abnormal myocardial perfusion study showing a moderate-sized reversible perfusion defect involving the LAD territory. The patient has consented for a coronary angiogram plus or minus PCI. Procedure 1. Left heart catheterization 2. Selective coronary angiogram 3. Left ventricular angiogram 4. Right femoral angiogram Vascular Access Right common femoral artery Procedure Details The patient was brought into the catheterization laboratory. The patient was nothing by mouth since midnight. The patient was prepped and sterilized in the appropriate fashion. Local anesthetic was given to the right groin region with lidocaine 1%. A percutaneous stick to the right groin region with an 18-gauge Seldinger needle was attempted. A 6 Turkish sheath was inserted into the right femoral artery. A 6 Turkish FL 4 diagnostic catheter was advanced and engaged into the left main. The left coronary angiography was performed in multiple views. The catheter was exchanged over the wire for a 6 Turkish FR4 diagnostic catheter. The catheter was engaged in the right coronary ostium and the right coronary angiography was performed in multiple views. The catheter was removed over the wire and exchanged for 6 Turkish angle pigtail catheter. LV hemodynamics were recorded. Left ventricular angiography was performed at 10 mL /s for total 30 mL of contrast. LV pullback was performed. All catheters were removed. The right femoral angiogram was performed to evaluate for closure device. Hemostasis was obtained with manual compression. The patient was transferred back to special observation unit for post procedural monitoring. There were no immediate complications. Total fluoroscopy time: 2.1 minutes Total fluoroscopy dosage: 276 mGy Estimated blood loss: 5 mL Total contrast: 65 mL Findings 1. Hemodynamics: The left ventricular systolic pressure was estimated at 152 mmHg and the left ventricular end-diastolic pressure was estimated at 12 mmHg. There is no significant gradient during pullback. The aortic systemic pressure was 151/57 mmHg with a mean arterial pressure of 95 mmHg. 2. Selective coronary angiography: A. Left main: There artery has no evidence of significant disease. It bifurcates into the left anterior and left circumflex arteries. B. Left anterior descending artery: The proximal portion there is mild calcification. There is also a 80-90% ostial LAD stenosis. In the midportion there is a 99% stenosis. There is a diagonal artery that comes off this area has mild diffuse disease. Otherwise distal to this critical stenosis there is no evidence of significant disease. C. Left circumflex artery: This is a relatively large size left circumflex artery but is nondominant. There is some mild tortuosity distally but otherwise no evidence of significant disease. D. Right coronary artery: This is a dominant artery with no evidence of significant disease. There was some dampening with the 6 Turkish diagnostic catheter but there is still some backflow as well. 3. Left ventricular angiogram: The ejection fraction is around 70 %. There is no appreciable LV wall motion abnormalities. 4. Right femoral angiogram: There is no evidence of significant disease. Summary 1. Severe stenosis at the ostium of the LAD and critical stenosis in the midportion of the LAD. 2. Mild disease elsewhere within the major epicardial coronaries. 3. Normal left ventricular filling pressures but moderately elevated arterial systemic pressures. 4. Normal LV ejection fraction with no evidence of significant mitral regurgitation. LV wall motion is normal. Recommendations No intervention was performed today. I will discuss with the patient about her options which include PCI versus CABG. copies to: Yunior Menchaca Oscar J MD May 31, 2016 11:32
--- NOTE | 2016-05-31 12:00 | NUR ---
Received from construction or leak gang laborer with sheath in place - sheath removed at 1125, manual hold. Family is at bedside - and understands plan of care is pending. NSR no ectopy.
--- NOTE | 2016-05-31 13:04 | NUR ---
Transfer plan to [place] for CABG tomorrow. Pt understands she will transferring from [facility] today by ambulance. Timeline on transfer is pending. Right groin puncture site is stable. OK to feed patient per Dr Trevino. Family understands plan of care.
--- NOTE | 2016-05-31 14:35 | NUR ---
Transferred from [facility] via ACLS transfer. NSR no ectopy - Right femoral puncture is soft and non-tender. Patient is pain free. Family at bedside and are informed of room number and direct line to receiving floor at [place].
--- NOTE | 2016-05-31 17:13 | PCM.PNMED ---
Subjective Date of Service May 31, 2016 Subjective Patient was examined at bedside today. Patient denies any chest pain, shortness of breath, nausea, vomiting, diarrhea. Exam Vital Signs Vital Sign - Last Date Time Temp Pulse Resp B/P Pulse Ox O2 Delivery O2 Flow Rate FiO2 05/31/16 13:56 75 20 170/74 05/31/16 13:56 Room Air 05/31/16 13:01 100 05/31/16 05:00 36.6 Intake and Output 05/30/16 05/30/16 05/31/16 Cumulative From/Thru 15:00 23:00 07:00 05/29/16 23:40 - 05/31/16 05:00 Intake Total 800 ml 300 ml 1400 ml Output Total 1350 ml 1950 ml 3300 ml Balance -550 ml -1650 ml -1900 ml Intake Oral 800 ml 300 ml 1400 ml IV Total 0 ml 0 ml Output Urine Total 1350 ml 1950 ml 3300 ml # Bowel Movements 0 0 0 Exam Physical Exam: GEN: Patient was awake, alert, responding appropriately to questions HEENT: PERRLA, EOMI, Neck soft supple, trachea midline, nomocephalic/atraumatic CV: +S1/S2, RRR, no murmurs auscultated Respiratory: CTAB, no wheezes, rales, rhonchi GI: +bowel sounds x4, soft, compressible, non TTP EXT: no c/c/e Neuro: CN II-XII grossly intact Psych: mood and affect were appropriate IVs and Medications Medications Reviewed: Medications were reviewed in detail Medications Current Medications Al Hydrox/Mg Hydrox/Simethicone 30 ml Q6 PRN PO; Start 05/30/16 at 01:55; Stop 05/31/16 at 15:24; Status DC Ondansetron HCl Dose range: 4 mg to 8 mg Q4H PRN IVPUSH; Start 05/30/16 at 01: 55; Stop 05/31/16 at 11:25; Status DC Acetaminophen 975 mg Q6H PRN PO; Start 05/30/16 at 01:55; Stop 05/31/16 at 11: 25; Status DC Sodium Chloride 10 ml MILY IVFLUSH; Start 05/30/16 at 08:30; Stop 05/30/16 at 14: 49; Status DC Aspirin 81 mg DAILY PO Last administered on 05/31/16 08:11; Admin Dose 81 MG; Start 05/30/16 at 08:30; Stop 05/31/16 at 15:24; Status DC Senna 1 tablet BID PRN PO; Start 05/30/16 at 01:55; Stop 05/31/16 at 15:24; Status DC Polyethylene Glycol 17 gm DAILY PRN PO; Start 05/30/16 at 01:55; Stop 05/31/16 at 15:24; Status DC Nitroglycerin 0.4 mg Q5MIN PRN SL; Start 05/30/16 at 01:55; Stop 05/31/16 at 11 :25; Status DC Morphine Sulfate 1-5 mg prn pain not relie... Q5M PRN IVPUSH; Start 05/30/16 at 01:55; Stop 05/31/16 at 11:25; Status DC Clonidine 0.1 mg BID PRN PO; Start 05/30/16 at 02:35; Stop 05/30/16 at 17:27; Status DC Lorazepam 1 mg ONCE PRN IVPUSH; Start 05/31/16 at 06:00; Stop 05/31/16 at 15:24 ; Status DC Nitroglycerin 0.4 mg PRN PRN SL; Start 05/31/16 at 06:00; Stop 05/31/16 at 06: 00; Status DC Sodium Chloride 10 ml MILY IVFLUSH Last administered on 05/31/16 02:13; Admin Dose 10 ML; Start 05/30/16 at 16:30; Stop 05/31/16 at 15:24; Status DC Metoprolol Tartrate 25 mg BID PO; Start 05/30/16 at 20:30; Stop 05/30/16 at 20: 30; Status DC Carvedilol 3.125 mg BIDWM PO Last administered on 05/31/16 08:11; Admin Dose 3.125 MG; Start 05/30/16 at 17:30; Stop 05/31/16 at 15:24; Status DC Atorvastatin Calcium 10 mg 10 mg HS PO Last administered on 05/30/16 22:01; Admin Dose 10 MG; Start 05/30/16 at 21:00; Stop 05/31/16 at 15:24; Status DC Sodium Chloride 1,000 ml @ 100 mls/hr Q10H PRN IV; Start 05/31/16 at 11:06; Stop 05/31/16 at 15:24; Status DC Sodium Chloride 250 ml @ 25 mls/min Q10M PRN IV; Start 05/31/16 at 11:06; Stop 05/31/16 at 15:24; Status DC Lidocaine HCl 10 ml ONCE PRN INJ; Start 05/31/16 at 11:10; Stop 05/31/16 at 15: 24; Status DC Acetaminophen 975 mg Q6H PRN PO; Start 05/31/16 at 11:10; Stop 05/31/16 at 15: 24; Status DC Acetaminophen/ Hydrocodone Bitart One tablet for Mild ... Q4H PRN PO; Start at 11:10; Stop 05/31/16 at 15:24; Status DC Ondansetron HCl Start with 4 MG, if ... Q4H PRN IVPUSH; Start 05/31/16 at 11:10 ; Stop 05/31/16 at 15:24; Status DC Morphine Sulfate Start at 1 mg, if not effect... Q5MIN PRN IVPUSH; Start at 11:10; Stop 05/31/16 at 15:24; Status DC Nitroglycerin 0.4 mg Q5MIN PRN SL; Start 05/31/16 at 11:10; Stop 05/31/16 at 15 :24; Status DC Atropine Sulfate 1 mg ONCE PRN IVPUSH; Start 05/31/16 at 11:10; Stop 05/31/16 at 15:24; Status DC Lab and Diagnostics Result Diagram: 05/31/16 0530 05/31/16 0530 12-lead ECG Rate 76 QTc 460 No significant ischemic changes seen on EKG; about [address] depression noted II, III, aVF Additional Diagnostics PROCEDURE: 1 DAY TREADMILL STRESS TEST Rest and exercise myocardial perfusion SPECT with gated imaging and ejection fraction RADIOPHARMACEUTICAL: 8.8 mCi Tc-99m tetrafosmin IV at rest and 25.1 mCi Tc-99m tetrafosmin IV at peak exercise. [id number] was performed. INDICATIONS: 70-year-old woman with chest pain. The patient has hypertension, hyperlipidemia and family history of coronary artery disease. TECHNIQUE: Radiopharmaceutical was injected at peak stress test, and also at rest. SPECT images were obtained. SPECT myocardial perfusion images were displayed in short axis, horizontal long axis, and vertical long axis views. Gated images were reviewed using [employer] software. COMPARISON: None. CARDIAC STRESS: A standard [place] treadmill exercise tolerance test was performed by the patient under the supervision of an attending staff. The patient exercised for 6 minutes and 0 seconds; functional aerobic impairment (MEJIA) is 0 %. Hemodynamic data: There is normal blood pressure and heart rate response to exercise stress. Patient achieved 86% of maximum predicted heart rate at peak exercise. Symptoms: Patient experienced chest pain (2-3/10) during exercise. EKG: There is up to [address] depression inII, III and V5-6; occasional PVCs. FINDINGS: Raw data: There is good myocardial labeling by radiotracer. No significant motion artifacts. Left ventricle function: Gated images demonstrate normal left ventricle wall thickening. No segmental wall motion abnormality. No transient ischemic dilation. The left ventricle resting end-diastolic volume is normal. Left ventricle stress ejection fraction is greater than 70%; normal values are above 45%. Myocardial perfusion: There is a moderate sized, moderately severe, reversible perfusion defect in the anterior apex and anterior septum, consistent with myocardial ischemia. IMPRESSION: 1. Abnormal myocardial perfusion images. There is a moderate sized, moderately severe, reversible perfusion defect in the anterior apex and anterior septum, consistent with myocardial ischemia 2. Normal left ventricular volume and systolic function. 3. Fair exercise capacity. The patient experienced mild chest pain during exercise stress. There were diagnostic EKG changes for ischemia. The result was discussed with Dr. Zruita (red team) prior to dictation. RS ATTESTATIONS: Measure 322 - Is this imaging test primarily performed on a low-risk surgery patient for preoperative evaluation within 30 days preceding their low-risk non- cardiac surgery? Low-risk surgery is defined as cardiac or myocardial infarction less than 1%, including (but not limited to) endoscopic procedures, superficial procedures, cataract surgery, and excisional breast surgery: Answer : No Measure 323 - Is this imaging test performed primarily for the monitoring of an asymptomatic patient who had percutaneous coronary intervention on the visit date or within 2 years of the visit date? Answer: No Measure 324 - Is this imaging test performed primarily for the initial detection and risk assessment on an asymptomatic, low coronary heart disease patient? Low CHD risk definition = clinicians should consider the maximum number of available patient factors used to estimate risk based on [place] ( ATP III criteria), typically age, gender, diabetes, smoking status, and use of blood pressure medication, and integrate age appropriate estimates for missing elements, such as LDL or standard blood pressure. Answer: No Dictated by: Greer Martinez M.D. on 05/30/2016 at 11:42 Approved by: Greer Martinez M.D. on 05/30/2016 at 11:53 Assessment & Plan Patient is a 70 year old female with a history of hyperlipidemia and hypertension. She presented to [facility] on 05/29/16 with chest pain. Admitted for observation and evaluation of her chest pain. Possible coronary artery disease. -- History of hyperlipidemia and positive family history of CAD. -- Trending troponin negative 3 -- CK-MB panel ordered within normal limits -- Lipid panel ordered shows elevated cholesterol at 244 and LDL 149 -- Nitro SL and morphine available PRN for chest pain. -- Continue aspirin 81 mg daily. -- Echocardiogram results shows EF 60-65% with no wall abnormality -- Exercise stress test with abnormal -- Cardiology consulted (Dr. Trevino) Hypertension, acute on chronic. -- Currently stable blood pressure is 103/58 -- Start carvedilol 3.125 mg twice a day -- We will continue to monitor Hyperlipidemia, chronic. -- Lipid panel elevated cholesterol 244 and LDL 149 -- [place] risk score is about 10%. -- Start Atorvastatin 10 mg daily at bedtime - Antiemetic available PRN. - Antacid available PRN. - Bowel regimen available PRN. - Tylenol available PRN mild pain, fever. Disposition: Patient seems to be progressing well and her chest pain has been decreasing. Patient is awaiting her cardiac stress test. Depending on the results the patient may be discharged home we will defer to cardiology. PCP: Yunior Menchaca MD VTE Prophylaxis: SCDs VTE Mechanical Devices: Intermittant Pneumatic CD Resuscitation Status: Limited Interventions (Patient ok with cardioversion/ defibrillation and intubation; does not want chest compressions) China Zurita DO May 31, 2016 17:13
--- NOTE | 2016-05-31 20:08 | NUR ---
Case Management: COS to IP. Unable to provide IMM as patient transferred to [facility] directly from [facility]. Naida Scott RN
--- NOTE | 2016-06-04 07:16 | PCM.DC.MED ---
Discharge Summary Date of Service Jun 04, 2016 Dates of Hospitalization Date of Hospital Admission May 30, 2016 at 01:28 Date of Discharge: May 31, 2016 Providers: Admitting Physician: Misti Holt DO Primary Care Physician: Yunior Menchaca DO Attending Physician: Misti Holt DO Diagnosis at Time of Discharge Diagnosis at Time of Discharge Possible coronary artery disease. Hypertension, acute on chronic. Hyperlipidemia, chronic. VT Consultations Cardiology Dr. Trevino Procedures ECG 12 Lead Rate 76 QTc 460 No significant ischemic changes seen on EKG; about [address] depression noted II, III, aVF Other Diagnostics PROCEDURE: 1 DAY TREADMILL STRESS TEST Rest and exercise myocardial perfusion SPECT with gated imaging and ejection fraction RADIOPHARMACEUTICAL: 8.8 mCi Tc-99m tetrafosmin IV at rest and 25.1 mCi Tc-99m tetrafosmin IV at peak exercise. [id number] was performed. INDICATIONS: 70-year-old woman with chest pain. The patient has hypertension, hyperlipidemia and family history of coronary artery disease. TECHNIQUE: Radiopharmaceutical was injected at peak stress test, and also at rest. SPECT images were obtained. SPECT myocardial perfusion images were displayed in short axis, horizontal long axis, and vertical long axis views. Gated images were reviewed using [employer]oder[employer] software. COMPARISON: None. CARDIAC STRESS: A standard [place] treadmill exercise tolerance test was performed by the patient under the supervision of an attending staff. The patient exercised for 6 minutes and 0 seconds; functional aerobic impairment (MEJIA) is 0 %. Hemodynamic data: There is normal blood pressure and heart rate response to exercise stress. Patient achieved 86% of maximum predicted heart rate at peak exercise. Symptoms: Patient experienced chest pain (2-3/10) during exercise. EKG: There is up to [address] depression inII, III and V5-6; occasional PVCs. FINDINGS: Raw data: There is good myocardial labeling by radiotracer. No significant motion artifacts. Left ventricle function: Gated images demonstrate normal left ventricle wall thickening. No segmental wall motion abnormality. No transient ischemic dilation. The left ventricle resting end-diastolic volume is normal. Left ventricle stress ejection fraction is greater than 70%; normal values are above 45%. Myocardial perfusion: There is a moderate sized, moderately severe, reversible perfusion defect in the anterior apex and anterior septum, consistent with myocardial ischemia. IMPRESSION: 1. Abnormal myocardial perfusion images. There is a moderate sized, moderately severe, reversible perfusion defect in the anterior apex and anterior septum, consistent with myocardial ischemia 2. Normal left ventricular volume and systolic function. 3. Fair exercise capacity. The patient experienced mild chest pain during exercise stress. There were diagnostic EKG changes for ischemia. The result was discussed with Dr. Zurita (red team) prior to dictation. RS ATTESTATIONS: Measure 322 - Is this imaging test primarily performed on a low-risk surgery patient for preoperative evaluation within 30 days preceding their low-risk non- cardiac surgery? Low-risk surgery is defined as cardiac or myocardial infarction less than 1%, including (but not limited to) endoscopic procedures, superficial procedures, cataract surgery, and excisional breast surgery: Answer : No Measure 323 - Is this imaging test performed primarily for the monitoring of an asymptomatic patient who had percutaneous coronary intervention on the visit date or within 2 years of the visit date? Answer: No Measure 324 - Is this imaging test performed primarily for the initial detection and risk assessment on an asymptomatic, low coronary heart disease patient? Low CHD risk definition = clinicians should consider the maximum number of available patient factors used to estimate risk based on [place] ( ATP III criteria), typically age, gender, diabetes, smoking status, and use of blood pressure medication, and integrate age appropriate estimates for missing elements, such as LDL or standard blood pressure. Answer: No Dictated by: Greer Martinez M.D. on 05/30/2016 at 11:42 Approved by: Greer Martinez M.D. on 05/30/2016 at 11:53 Brief History This is a 70 y/o female with no prior CAD. She comes in with complaints of chest pain that has atypical features for angina. She is very active. She eats a vegan diet for many years. She exercises three times a week at [facility] and she has never had any CP during exercises. But over the past 1-2 weeks she has developed some heartburn sensation on exertion but her main complaints have obscured at nighttime. When she walks she is not limited by her chest discomfort but it does bother her. However at nighttime she has had severe chest discomfort that she describes a sharp but radiates to her neck and left arm. Her daughter is a RN in [place] and advise her to the ER [facility]. She was admitted early this morning and proceeded with a stress test (myocardial perfusion study). She proceed with an exercise treadmill study and she developed some CP that was 2-3/10 and abated with rest. She also had ST depressions during recovery stage as well. Her images have been reviewed and agree with interpretation. There is a moderate size perfusion abnormality consistent with ischemia along the mid/distal LAD territory. Based on these abnormalities, I was asked to see her today to see if coronary angiogram will be appropriate. Hospital Course Patient is a 70 year old female with a history of hyperlipidemia and hypertension. She presented to [facility] on 05/29/16 with chest pain. Admitted for observation and evaluation of her chest pain. Patient had negative troponins x 3. Echo showed EF 60-65% with no wall abnormalities. The patient had an exercise stress test which was abnormal and then the patient was taken for a cardiac cath. Patient was seen and examined in the morning and was doing well. After the cardiac cath procedure, patient was transferred to [facility] by cardiology. Please see cardiology note for the reasons for the transfer I was not informed of the transfer. PCP: Yunior Menchaca MD Exam Vital Signs (Last) Date Time Temp Pulse Resp B/P Pulse Ox O2 Delivery O2 Flow Rate FiO2 05/31/16 13:56 75 20 170/74 05/31/16 13:56 Room Air 05/31/16 13:01 100 05/31/16 05:00 36.6 Exam Physical Exam: at 0930 GEN: Patient was awake, alert, responding appropriately to questions HEENT: PERRLA, EOMI, Neck soft supple, trachea midline, nomocephalic/atraumatic CV: +S1/S2, RRR, no murmurs auscultated Respiratory: CTAB, no wheezes, rales, rhonchi GI: +bowel sounds x4, soft, compressible, non TTP EXT: no c/c/e Neuro: CN II-XII grossly intact Psych: mood and affect were appropriate Test 05/30/16 00:02 05/30/16 02:15 05/30/16 12:10 05/31/16 05:30 Neutrophils (%) (Auto) 49.9% (40-74) Lymphocytes (%) (Auto) 35.7% (14-46) Monocytes (%) (Auto) 11.8% (4-12) Eosinophils (%) (Auto) 1.7% (0-5) Basophils (%) (Auto) 0.7% (0-3) Magnesium Level 2.5mg/dL (1.6-2.6) Total Creatine Kinase 106U/L (21-215) Creatine Kinase MB 1.8ng/mL (0.0-5.3) Creatine Kinase MB % % (0.0-5.0) Pro-B-Type Natriuretic Peptide 179.1pg/mL (0-301) Triglycerides Level 143mg/dL (0-149) Cholesterol Level 244mg/dL (100-199) LDL Cholesterol, Calculated 149.400mg/dL (0-99) VLDL Cholesterol 28.600mg/dL HDL Cholesterol 66mg/dL (>39) Cholesterol/HDL Ratio 3.70 (0.0-4.4) Hold Urban Top Tube Received (Received) Urine Color Straw (YELLOW) Urine Appearance Clear (CLEAR,HAZY) Urine pH 7.5 (5.0-8.0) Urine Specific [place] 1.010 (1.003-1.035) Urine Protein Negativemg/dL (NEG,TRACE) Urine Glucose (UA) Negativemg/dL (NEGATIVE) Urine Ketones Negativemg/dL (NEGATIVE) Urine Occult Blood Negative (NEGATIVE) Urine Nitrite Negative (NEGATIVE) Urine Bilirubin Negative (NEGATIVE) Urine Urobilinogen Normalmg/dL (NORMAL) Urine Leukocyte Esterase Negative (NEGATIVE) Urine RBC 0-2/hpf (0-2) Urine WBC 0-5/hpf (0-5) Urine Epithelial Cells Occasional/hpf (NONE-MOD) Urine Crystals None seen (NONE SEEN) Urine Bacteria None/hpf (NONE-FEW) Urine Hyaline Casts None/lpf (NONE) Urine Granular Casts None seen (NONE SEEN) Urine Waxy Casts None seen (NONE SEEN) Urine Red Blood Cell Casts None seen (NONE SEEN) Urine White Blood Cell Casts None seen (NONE SEEN) Urine Mucus None seen (None Seen) Urine Trichomonas None seen (NONE SEEN) Urine Yeast None (NONE SEEN) Urine Culture Reflexed Not indicated Troponin T < 0.010ug/L (0.0-0.011) White Blood Count 3.7th/mm3 (3.8-10.1) Red Blood Count 3.79mil/mm3 (3.90-5.20) Hemoglobin 11.1g/dL (12.0-15.6) Hematocrit 33.9% (35.0-46.0) Mean Corpuscular Volume 89.4fL (81-100) Mean Corpuscular Hemoglobin 29.3pg (27.0-35.0) Mean Corpuscular Hemoglobin Concent 32.7% (32.0-37.0) Red Cell Distribution Width 13.2% (12.3-15.4) Platelet Count 270bil/L (150-400) Sodium Level 140mEq/L (134-144) Potassium Level 4.5mEq/L (3.5-5.2) Chloride Level 104mEq/L (97-108) Carbon Dioxide Level 25mmol/L (18-29) Blood Urea Nitrogen 12mg/dL (8-27) Creatinine 0.81mg/dL (0.57-1.00) Estimat Glomerular Filtration Rate 100mL/min (>59) Glucose Level 100mg/dL (60-99) Calcium Level 8.9mg/dL (8.5-10.1) Total Bilirubin 0.3mg/dL (0.0-1.2) Aspartate Amino Transf (AST/SGOT) 15U/L (0-50) Alanine Aminotransferase (ALT/SGPT) 8U/L (0-32) Alkaline Phosphatase 99U/L (25-165) Total Protein 6.8g/dL (6.4-8.4) Albumin 3.7g/dL (3.4-5.0) Discharge Medications As needed Clonidine (Clonidine) 0.1 Mg Tablet 0.1 MG PO PRN For HYPERtension (Reported) China Zurita DO Jun 04, 2016 07:16
--- NOTE | 2016-06-24 16:29 | PCM.PNCARD ---
Subjective Date of service 05/31/16 Chief Complaint Chest pain Constitutional: Denies: Chills, Fever Cardiovascular: Reports: Chest Pain Neurological: Denies: Confusion, Dizziness Assessment & Plan Problems: (1) Unstable angina Plan: The patient was found to have significant coronary disease at the ostial LAD that would be better suited for coronary bypass grafting rather than PCI. The patient was sent to [facility] for urgent coronary artery bypass grafting. Status: Acute ICD Code: I20.0 (2) HTN (hypertension) Qualifiers: Hypertension type: essential hypertension Status: Chronic ICD Code: I10 (3) Hyperlipidemia Qualifiers: Hyperlipidemia type: Mixed hyperlipidemia Qualified Code: E78.2 - Mixed hyperlipidemia Status: Chronic ICD Code: E78.5 Cardiology Plan: Catherization, Lipid assessment & treatment Pain Evaluation: Adequate Pain Control VTE Prophylaxis: SCDs VTE Mechanical Devices: Intermittant Pneumatic CD Resuscitation Status: Limited Interventions (Patient ok with cardioversion/ defibrillation and intubation; does not want chest compressions) Time spent 15 minutes Dima Trevino MD Jun 24, 2016 16:29
== END 2016-05-31 15:21 | disposition short-term general hospital (02) | DRG 287 ==
LOC: SED 23:36 → OSC 05-30 01:28 → OBSVTOIN 05-30 01:28 → SOU 05-30 11:39 → OSC 05-30 11:41
PROVIDERS: ADMIT Internal Medicine; ATTEND Internal Medicine
PROC: 4A023N7 Measurement of Cardiac Sampling and Pressure, Left Heart, Percutaneous Approach (ICD-10-PCS; principal; 2016-05-31)
PROC: B2111ZZ Fluoroscopy of Multiple Coronary Arteries using Low Osmolar Contrast (ICD-10-PCS; 2016-05-31)
PROC: B2151ZZ Fluoroscopy of Left Heart using Low Osmolar Contrast (ICD-10-PCS; 2016-05-31)
DX: I20.0 Unstable angina (principal); I10 Essential (primary) hypertension; E78.5 Hyperlipidemia, unspecified; Z82.49 Family history of ischemic heart disease and other diseases of the circulatory system; Z79.82 Long term (current) use of aspirin